=== PATIENT | male | born 1975 | race Two or more races ===

== ENCOUNTER 2024-06-15 07:53 | Outpatient (CLI) | payer OTHER | END 2024-06-15 08:02 | disposition home or self-care (01) | LOC: SONOGRAMA 07:53 | DX: M77.00 Medial epicondylitis, unspecified elbow (principal) ==

== ENCOUNTER → 2025-09-18 07:25 | Outpatient (CLI) | payer OTHER ==
[2025-09-18 08:46] LABS: BASO % 0.3 % (0.1-1.2); EOS # 0.18 (0.04-0.54); EOS % 2.3 % (0.7-7.0); LYMPH # 3.01 (1.18-3.74); LYMPH % 37.9 % (19.3-53.1); MEAN PLATELET VOLUME 10.00 fl (9.4-12.4); MONO # 0.64 (0.24-0.82); MONO % 8.1 % (4.7-12.5); NEUT # 4.08 (1.56-6.13); NEUT % 51.1 % (34.0-71.1); RED CELL DISTRIBUTION WIDTH 13.1 % (11.6-14.4)
[2025-09-18 08:50] LABS: URINE APPEARANCE Clear; URINE BILIRRUBIN Negative (NEGATIVE); URINE BLOOD Negative; URINE COLOR Yellow; URINE GLUCOSE Negative (NEGATIVE); URINE KETONE Trace (NEGATIVE); URINE LEUKOCYTE Negative; URINE NITRATE Negative; URINE PROTEIN Negative (NEGATIVE); URINE UROBILINOGEN 0.2 E.U./dl
[2025-09-18 08:52] LABS: URINE BACTERIA 18.0 uL (0.0-1933); URINE WBC 7.2 uL (0.0-23.2)
[2025-09-18 08:59] LABS: URINE CAST 0.29 uL (0.0-1.40); URINE EPITHELIAL CELLS 1.0 uL (0.0-38.8); URINE RBC 1.7 uL (0.0-20.8)
[2025-09-18 10:31] LABS: ALT/SGPT 51.0 U/L (12-78); AST/SGOT 22.0 U/L (15-37); BILIRUBIN TOTAL 0.59 mg/dL (0.3-1.2); BUN CREA RATIO 26.0 (7.0-25.0); CHOL HDL RATIO 4.9 (0-5.0); CREATININE SERUM 0.86 mg/dL (0.70-1.30); GFR 94.13; GLOBULINA 3.5 G/DL (2.4-3.5); GLUCOSE FASTING 95.0 mg/dL (65-100); HDL 39.0 mg/dl (40-60); LDL 137.0 mg/dl (0-130); OSMOLALITY SERUM 288.0 MOSM/KG (275-295); PROSTATIC SPECIFIC ANTIGEN 1.49 NG/ML (0.010-4.00); T4 FREE 1.13 NG/ML (0.76-1.46); TSH 1.67 uIU/mL (0.358-3.74); VLDL 14.0 (0-39)
[2025-09-18 10:42] LABS: VITAMIN D3 25 HYDROXY 34.25 ng/ml (30-120)
== END | disposition home or self-care (01) ==
LOC: LAB 07:25
DX: N39.0 Urinary tract infection, site not specified (principal); E78.2 Mixed hyperlipidemia; I10 Essential (primary) hypertension; E03.9 Hypothyroidism, unspecified; E11.69 Type 2 diabetes mellitus with other specified complication; N40.0 Benign prostatic hyperplasia without lower urinary tract symptoms; K92.1 Melena; E55.9 Vitamin D deficiency, unspecified; D51.9 Vitamin B12 deficiency anemia, unspecified; M85.9 Disorder of bone density and structure, unspecified

== ENCOUNTER 2025-09-18 07:42 | Outpatient (CLI) | payer OTHER | END 2025-09-18 07:43 | disposition home or self-care (01) | LOC: MRI 07:42 | DX: M25.512 Pain in left shoulder (principal) | CPT/HCPCS: 73218 ==